=== PATIENT | female | born 1950 | race Hispanic/Latino ===

== ENCOUNTER 2021-08-06 21:38 | Inpatient (IN) | payer MEDICARE ==
[~2021-08-06] VITALS: Ht 162.6 cm; Wt 66.5 kg
[2021-08-06] MEDS ORDERED: ONDANSETRON 4MG INJ IVP ONE (23:00)
[2021-08-06] MEDS ORDERED: 0.9%NACL 1000ML 1,000 ML IV ONE (23:00)
[2021-08-06] MEDS ORDERED: MORPHINE 4 MG SYG IVP ONE (23:00)
[2021-08-06 23:05] LABS: BASOPHILS % (AUTO) 0.2 % (0.0-5.0); EOSINOPHILS % (AUTO) 0.5 % (0.0-8.0); HEMATOCRIT 38.9 % (36-48); LYMPHOCYTES % (AUTO) 9.4 % (21.0-51.0); MEAN CORPUSCULAR HEMOGLOBIN 29.6 pg (27.0-33.0); MEAN CORPUSCULAR HGB CONC 32.6 g/dL (32.0-36.0); MEAN CORPUSCULAR VOLUME 90.7 fL (79-99); MONOCYTES % (AUTO) 4.9 % (3.0-13.0); NEUTROPHILS % (AUTO) 84.6 % (40.0-77.0); PLATELET COUNT (AUTO) 215 K/uL (130-400); RED BLOOD CELL COUNT(AUTO) 4.29 MIL/uL (4.00-5.50); WHITE BLOOD COUNT (AUTO) 11.1 K/uL (4.8-10.8)
[2021-08-06 23:13] LABS: CREATININE 0.7 mg/dL (0.5-1.5); POTASSIUM 3.8 mmol/L (3.5-5.1)
[2021-08-06 23:17] LABS: BILIRUBIN,TOTAL 0.5 mg/dL (0.2-1.0); TOTAL PROTEIN, SERUM 7.3 g/dL (6.0-8.3)
[2021-08-06] MEDS ORDERED: IOHEXOL 350 MG/ML 100ML INFUS..BTL IV ONE (23:17)
[2021-08-07] MEDS ORDERED: 0.9%NACL 1000ML 1,000 ML IV SCH (01:30)
[2021-08-07 02:06] LABS: APPEARANCE,URINE Clear (CLEAR); BILIRUBIN,URINE Negative (NEGATIVE); COLOR,URINE Yellow (YELLOW); GLUCOSE, URINE (UA) Negative (NEGATIVE); KETONES,URINE Negative (NEGATIVE); LEUKOCYTE ESTERASE ,URINE Negative (NEGATIVE); NITRATE,URINE Negative (NEGATIVE); OCCULT BLOOD,URINE Negative (NEGATIVE); PH,URINE 6.5 (5.0-8.0); PROTEIN,URINE Negative (NEGATIVE); UROBILINOGEN,URINE 0.2 mg/dL (0.2-1.0)
[2021-08-07] MEDS ORDERED: ONDANSETRON 4MG INJ IVP PRN (03:00)
[2021-08-07] MEDS ORDERED: HYDROMORPHONE 0.5 MG SYG (0.5MG/0.5ML) IVP PRN (03:00)
[2021-08-07] MEDS: 0.9%NACL 1000ML 1,000 ML IV SCH (03:25)
[2021-08-07] MEDS: PANTOPRAZOLE 40 MG/VIAL IVP SCH (03:25)
[2021-08-07] MEDS: CEFTRIAXONE 1G VIAL IVP SCH (03:25)
[2021-08-07 04:05] VITALS: BP 124/56
[2021-08-07] MEDS ORDERED: CITA-107 PO (04:54)
[2021-08-07] MEDS ORDERED: LEVO50CA4 PO (04:54)
[2021-08-07] MEDS ORDERED: AEC81 PO (04:54)
[2021-08-07] MEDS ORDERED: ALPR1TAB7 PO (04:54)
[2021-08-07] MEDS ORDERED: METF-446 PO (04:55)
[2021-08-07 08:00] VITALS: BP 116/48
[2021-08-07 12:00] VITALS: BP 119/52
[2021-08-07 16:00] VITALS: BP 119/45
[2021-08-07 20:00] VITALS: BP 118/48
[2021-08-08] VITALS: BP 125/58
[2021-08-08 04:00] VITALS: BP 115/51
[2021-08-08] MEDS: CEFTRIAXONE 1G VIAL IVP SCH (05:09)
[2021-08-08 05:43] LABS: HEMATOCRIT 36.3 % (36-48); MEAN CORPUSCULAR HEMOGLOBIN 29.4 pg (27.0-33.0); MEAN CORPUSCULAR HGB CONC 32.2 g/dL (32.0-36.0); MEAN CORPUSCULAR VOLUME 91.2 fL (79-99); RED BLOOD CELL COUNT(AUTO) 3.98 MIL/uL (4.00-5.50); RED CELL DISTRIBUTION WIDTH 13.1 % (11.0-15.5); WHITE BLOOD COUNT (AUTO) 6.6 K/uL (4.8-10.8)
[2021-08-08 06:06] LABS: CREATININE 0.5 mg/dL (0.5-1.5); POTASSIUM 3.9 mmol/L (3.5-5.1)
[2021-08-08] MEDS: 0.9%NACL 1000ML 1,000 ML IV SCH (06:10)
[2021-08-08] MEDS ORDERED: LEVOTHYROXINE 50 MCG TABLET PO SCH (06:30)
[2021-08-08 08:00] VITALS: BP 120/51
[2021-08-08] MEDS: ALPRAZOLAM 1 MG TAB PO SCH ×2 (08:37→09:00)
[2021-08-08] MEDS: PANTOPRAZOLE 40 MG/VIAL IVP SCH (08:37)
[2021-08-08] MEDS: ASPIRIN 81 MG EC TAB PO SCH ×2 (08:37→09:00)
[2021-08-08] MEDS: CITALOPRAM 20 MG TABLET PO SCH ×2 (08:37→09:00)
[2021-08-08] MEDS: METFORMIN HCL 500 MG TABLET PO SCH ×2 (08:37→09:00)
== END 2021-08-08 18:45 | disposition home or self-care (01) | DRG 395 ==
LOC: EDH 21:38 → EDHIP 08-07 01:53 → 3AH 08-07 03:54
PROVIDERS: ADMIT Family Medicine; ATTEND Family Medicine
PROC: 0D9670Z Drainage of Stomach with Drainage Device, Via Natural or Artificial Opening (ICD-10-PCS; principal; 2021-08-07)
DX: K40.30 Unilateral inguinal hernia, with obstruction, without gangrene, not specified as recurrent (principal); E03.9 Hypothyroidism, unspecified; E11.9 Type 2 diabetes mellitus without complications; I10 Essential (primary) hypertension; R16.0 Hepatomegaly, not elsewhere classified; E78.5 Hyperlipidemia, unspecified; Z90.49 Acquired absence of other specified parts of digestive tract; Z90.710 Acquired absence of both cervix and uterus
CPT/HCPCS: 36415; 74177; 80048; 80053; 81003; 82948; 83690; 83735; 85025; 85027; C9113; G0378; J0696; J2270; J2405; J7030; Q9967

== ENCOUNTER 2021-09-16 06:27 | Day surgery (SDC) | payer MEDICARE ==
[2021-09-13 16:46] LABS: BASOPHILS % (AUTO) 0.6 % (0.0-5.0); EOSINOPHILS % (AUTO) 2.6 % (0.0-8.0); HEMATOCRIT 41.5 % (36-48); LYMPHOCYTES % (AUTO) 27.2 % (21.0-51.0); MEAN CORPUSCULAR HEMOGLOBIN 29.4 pg (27.0-33.0); MEAN CORPUSCULAR HGB CONC 31.8 g/dL (32.0-36.0); MEAN CORPUSCULAR VOLUME 92.4 fL (79-99); MONOCYTES % (AUTO) 7.1 % (3.0-13.0); NEUTROPHILS % (AUTO) 62.2 % (40.0-77.0); PLATELET COUNT (AUTO) 215 K/uL (130-400); RED BLOOD CELL COUNT(AUTO) 4.49 MIL/uL (4.00-5.50); RED CELL DISTRIBUTION WIDTH 13.2 % (11.0-15.5)
[2021-09-13 16:59] LABS: CREATININE 0.6 mg/dL (0.5-1.5); INR 0.99 (0.85-1.15); POTASSIUM 3.9 mmol/L (3.5-5.1); PROTHROMBIN TIME 10.8 SEC (9.6-11.6)
[2021-09-13 17:00] LABS: PARTIAL THROMBOPLASTIN TIME 31.9 SEC (26.3-35.5)
[2021-09-15 12:53] VITALS: BP 132/60
[2021-09-16] VITALS (18 sets, daily range): BP systolic 105–153; BP diastolic 44–71
[~2021-09-16] VITALS: Ht 161.3 cm; Wt 63.4 kg
[~2021-09-16 06:27] MED LIST: AEC81 PO; CALC1TAB2 PO; CITA20TA17 PO; LEVO50TA4 PO; METAMUCIL PO; METF-446 PO
[2021-09-16] MEDS ORDERED: LIDOCAINE PF 100MG/5ML (2%) SYRINGE 5ML ONE (07:27)
[2021-09-16] MEDS ORDERED: ONDANSETRON 4MG INJ ONE (07:27)
[2021-09-16] MEDS ORDERED: ROCURONIUM 10MG/1ML SYR 10 MG/ML ML ONE ×2 (07:27→10:07)
[2021-09-16] MEDS ORDERED: PROPOFOL 10 MG/ML 20ML VIAL IV ONE (07:27)
[2021-09-16] MEDS ORDERED: MIDAZOLAM HCL 1 MG/ML 2ML VIAL ONE (07:27)
[2021-09-16] MEDS ORDERED: FENTANYL CITRATE PF 50 MCG/1 ML 2ML VIAL ONE (07:28)
[2021-09-16] MEDS: CEFAZOLIN SODIUM 1 GM VIAL IVP SCH ×2 (07:30→08:36)
[2021-09-16] MEDS: 0.9%NACL 1000ML 1,000 ML IV SCH ×4 (07:35→11:50)
[2021-09-16] MEDS ORDERED: ROPIVACAINE 0.5% 5MG/ML 30ML IJ ONE (07:36)
[2021-09-16] MEDS ORDERED: DEXAMETHASONE SOD PHOSPHATE 10MG/ML 1ML VIAL ONE (08:23)
[2021-09-16] MEDS ORDERED: BUPIVACAINE/PF 0.5% 30ML VIAL ONE (08:45)
[2021-09-16] MEDS ORDERED: EPHEDRINE SULFATE 50 MG/ML AMPULE ONE (09:16)
[2021-09-16] MEDS ORDERED: NEOSTIGMINE 5MG/5ML SYR IV ONE (11:55)
[2021-09-16] MEDS ORDERED: GLYCOPYRROLATE 1 MG/5 ML SYRINGE ONE (11:55)
== END 2021-09-16 14:10 | disposition home or self-care (01) ==
LOC: DAH 06:27 → EDSTATUS 10:00 → DAH 14:10
PROVIDERS: ATTEND Student in an Organized Health Care Education/Training Program
DX: K40.30 Unilateral inguinal hernia, with obstruction, without gangrene, not specified as recurrent (principal); Z20.822 Contact with and (suspected) exposure to COVID-19; F41.9 Anxiety disorder, unspecified; E11.9 Type 2 diabetes mellitus without complications; Z79.899 Other long term (current) drug therapy; Z79.01 Long term (current) use of anticoagulants; Z79.82 Long term (current) use of aspirin; Z79.84 Long term (current) use of oral hypoglycemic drugs; Z98.890 Other specified postprocedural states; Z90.710 Acquired absence of both cervix and uterus; Z90.49 Acquired absence of other specified parts of digestive tract; Z83.3 Family history of diabetes mellitus
CPT/HCPCS: 36415; 49650; 64425; 76942; 80048; 82948 ×2; 85025; 85610; 85730; 87635; 93005; A4213; A4215; A4221; A4222; A4223; A4344; A4600; A4649; A4663; A4930; A6260; C1769 ×2; C1781; G0168; J0690; J1100; J2001; J2250; J2405; J2704; J2710; J2795; J3010; J3490 ×3; J7030 ×2; J7120; 96365

== ENCOUNTER → 2023-12-13 | Outpatient (CLI) | payer OTHER | END | disposition home or self-care (01) | LOC: OIH 14:51 | PROVIDERS: ATTEND Internal Medicine Cardiovascular Disease | DX: Z13.6 Encounter for screening for cardiovascular disorders (principal) | CPT/HCPCS: 75571 ==